=== PATIENT | female | born 1990 | race Caucasian/White ===

== ENCOUNTER 2023-04-12 00:48 | Day surgery (SDC) | payer OTHER, SELFPAY ==
[2023-04-10 11:10] VITALS: BMI 23.8
--- NOTE | 2023-04-10 11:15 | PC.NURSE ---
Report to the Outpatient Waiting Room, entrance under the green pavilion located off [facility], at time 0600 on date 04/12/23. Planned Procedure Time: 0730. Time changes happen often and if your time is changed the preop area will call you the afternoon before. - You and your visitor will be asked to self-screen and do not enter if you have any COVID symptoms. - A mask is optional within the hospital at this time. Patients may have clear liquids (water, carbonated beverages, clear teas, apple juice) until 3 hours prior to surgery with a maximum of 20 ounces. - No food from midnight until time of surgery Take the following medications with a SIP of water the morning of surgery: N/A DO NOT STOP ANY OF YOUR OTHER PRESCRIPTION MEDICATIONS PRIOR TO SURGERY ?EXCEPT THE FOLLOWING Medications to discontinue per physician: N/A Date to take last dose: N/A Please no make-up, nail maltese, hairspray, perfume, deodorant, or body powder the day of surgery. No jewelry (including any body piercings) or valuables the day of surgery, leave them at home. Please take a shower or bath the night before, or the morning of, surgery with an antibacterial soap. Wear comfortable, loose fitting clothing. - Jewelry must be removed prior to entering the operating room. Rings and piercings that are not removed may be cut off. - The hospital will not accept responsibility for valuables. - Please leave all valuables, including medications, at home the day of surgery. If you are going home after surgery, a licensed catering driver must drive you home. - NO public transportation without another adult if you receive anesthesia. - We recommend that an adult stay with you for 24 hours following discharge. - We also recommend that you do not drive, make important decision, drink alcoholic beverages, or take any drugs that were not prescribed by your health care provider for at least 24 hours after your discharge time. Follow any additional instructions given to you from your surgeon. If you or anyone in your household have experienced Covid symptoms in the past week, please notify your surgeon or the nurse liaison at the phone number below for possible testing. Telephone instructions given to CLAUDIO GALAN and asked if any additional questions and then verbalized understanding. Patient advised to call surgeon office or pre surgery nurse liaison [phone] if any additional questions.
[2023-04-12 06:11] VITALS: BP 107/68; PULSE 66; RESP 16; TEMP 36.9; O2SAT 98; BMI 24.0
--- NOTE | 2023-04-12 06:33 | WPDANESEPPF ---
Anes - Initial Pre Proc Eval Procedure: Operation Date: 04/12/23 07:30 Proposed Procedures p Loop Electrical Excision Procedure - Nahun Almaguer MD Date/Time: 04/12/23 06:33 Surgeon: Nahun Almaguer MD Pre Op Diagnosis: LSIL Patient Data Age: 33 Gender: F Height: 1.7 m Weight: 68.95 kg Allergies Allergy/AdvReac Type Severity Reaction Status Date / Time No Known Allergies Allergy Verified 04/10/23 11:10 Home Medications Medication Instructions Recorded Confirmed Type No Home Medications 03/22/23 04/10/23 History Patient hx anesthesia problems: none Family hx anesthesia problems: none Results Review: All pre-operative results and documents have been reviewed as part of the pre-operative evaluation. FOR[facility]LY [facility] Past Medical History Medical History Anxiety Bicornate uterus History of abnormal cervical Pap smear Surgical History Surgical History Previous section x2 Family History Family History Mother Heart disease Sibling Anxiety and depression Hypertension Grandparent Breast cancer Dx in 60s Anxiety and depression Cerebrovascular accident Heart disease Social History Social History Smoking status: Never smoker Alcohol intake: current Alcohol use details: RARE Substance use: current Substance use type: marijuana Other substance usage details: THC Lack of Transportation: No Lack of Food: Never True Current Housing: I Have Housing Concerned About Future Housing: No Difficulty Paying Gas/Electric Bills: No Difficulty Paying for Meds: No Currently Unemployed: No Education: Trade/Vocational Certificate Difficulty w/ Childcare or Family Care: No Living arrangements: with family Occupation/Education: occupation Gender identity (if verbalized by the patient): Female Sexual Orientation (if Verbalized by the Patient): Straight or Heterosexual Spiritual care concerns: No Agree to blood products: Yes Anes - Eval Final PreProcedure Day of Procedure 04/12/23 06:33 Patient weight: normal Heart: regular rate and rhythm Lungs: clear to auscultation Airway: Mallampati scale class II Neurological: alert and oriented Last oral intake: >/= 8 hours ASA classification: II Emergent: no Anesthetic plan: proceed Anesthesia type and monitoring: general GIVS and standard monitoring Results Review: All pre-operative results and documents have been reviewed as part of the pre-operative evaluation. Informed Consent: The patient's anesthetic plan and its attendant risks and benefits were discussed with the patient/family/POA. Questions were solicited and answers provided to the satisfaction of the patient/family/POA.
--- NOTE | 2023-04-12 06:44 | PM.IMHP ---
H&P: HPI History of Present Illness Date/Time: 04/12/23 06:44 Chief Complaint: Dysplasia Narrative: Patient with an lgSIL pap HPV, subsequent biopsy CIN2. She was recommended for LEEP. Review of Systems Review of Systems: All systems reviewed & are unremarkable except as noted in HPI and below Cardiovascular: Cardiovascular: Reports no additional cardiovascular complaints, Denies chest pain and Denies dyspnea Respiratory: Respiratory: Reports no additional respiratory complaints and Denies dyspnea Gastrointestinal: Gastrointestinal: Reports abdominal pain, Denies change in bowel habits, Denies diarrhea, Denies nausea and Denies vomiting Genitourinary: Genitourinary: Reports pelvic pain Musculoskeletal: Musculoskeletal: Reports back pain Integumentary/Breasts: Skin/Breast: Reports system reviewed and no additional complaints, except as docu Neurologic: Reports system reviewed and no additional complaints, except as documented PMF Past Medical History Medical History Anxiety Bicornate uterus History of abnormal cervical Pap smear Surgical History Surgical History Previous section x2 Family History Family History Mother Heart disease Sibling Anxiety and depression Hypertension Grandparent Breast cancer Dx in 60s Anxiety and depression Cerebrovascular accident Heart disease Social History Social History Smoking status: Never smoker Alcohol intake: current Alcohol use details: RARE Substance use: current Substance use type: marijuana Other substance usage details: THC Lack of Transportation: No Lack of Food: Never True Current Housing: I Have Housing Concerned About Future Housing: No Difficulty Paying Gas/Electric Bills: No Difficulty Paying for Meds: No Currently Unemployed: No Education: Trade/Vocational Certificate Difficulty w/ Childcare or Family Care: No Living arrangements: with family Occupation/Education: occupation Gender identity (if verbalized by the patient): Female Sexual Orientation (if Verbalized by the Patient): Straight or Heterosexual Spiritual care concerns: No Agree to blood products: Yes Meds Home Medications and Allergies Home Medications Medication Instructions Recorded Confirmed Type No Home Medications 03/22/23 04/10/23 History Allergies Allergy/AdvReac Type Severity Reaction Status Date / Time No Known Allergies Allergy Verified 04/10/23 11:10 Exam Const: Orientation/consciousness: oriented to person and oriented to place HENMT: Head: normal to inspection Eyes: General: appearance normal, both eyes and all related structures Resp: Effort & Inspection: normal respiratory effort Auscultation: clear to auscultation bilaterally Cardio: Rate: regular rate Rhythm: regular rhythm GI: Inspection: normal to inspection GI Palp: No Rebound tenderness present Neuro: General: oriented to person and oriented to place Cognition (Neuro): normal cognition Extrem: General: normal to inspection Psych: Appearance: grossly normal and well kempt Assessment and Plan Assessment and plan (1) DMITRY II (cervical intraepithelial neoplasia II): Code(s): N87.1 - Moderate cervical dysplasia Status: Acute Assessment and Plan: Will proceed with LEEPl.
[2023-04-12] MEDS: LACTATED RINGERS 1,000 ML 30 ML IV CONT (07:00)
[2023-04-12] MEDS: ACETAMINOPHEN 500 MG TABLET 1000 MG PO (07:05)
--- NOTE | 2023-04-12 07:15 | WPDHPUPDATE1 ---
History and Physical Update Update Date/Time: 04/12/23 07:15 History and Physical has been reviewed, including an updated exam of the patient. There are NO changes in the patient's condition. Risks, benefits, and alternatives have been discussed and questions answered. Patient agrees to proceed with procedure.
[2023-04-12] MEDS: ceFAZolin 2 GM/D5W 50 ML 2 GM/50 ML BAG IVPB (07:22)
[2023-04-12] MEDS: LIDO 1%/EPINEPHRINE 1:100,000 50 ML VIAL INFILTRATE (07:33)
[2023-04-12 07:46] VITALS: BP 94/52; PULSE 86; RESP 12; O2SAT 99
--- NOTE | 2023-04-12 07:48 | W.PM.PROC2 ---
Procedure Note - Detailed Date of Procedure 04/12/23 Pre-op Diagnosis DMITRY 2 Post-op Diagnosis Same Procedure Performed Loop electrosurgical excision procedure Surgeon Nahun Almaguer MD Anesthesia MAC and Local Indications DMITRY 2 on cervical biopsy Findings Hypopigmentation noted at 11 and 7:00 a.m. Description of Procedure After informed consent was obtained patient was taken to operating room and adequate IV sedation was administered she was placed in high lithotomy position and prepped and draped in sterile fashion attention was turned to the vagina speculum was inserted single 2 [place] placed on the anterior lip of the cervix 10 cc 1% lidocaine with epinephrine was injected at the cervix at the biopsy site. Prior to this Lugol solution was placed and hypopigmented areas noted more at 11 and 7:00 position. The loop was passed and closing the ectocervix and closing the hypopigmented area there was an inferior area that was not closed in the past and a 2nd pass was made at the inferior ectocervix to include this hypopigmented area. A smaller loop was used for endocervical pass. Hemostasis obtained with cautery. Patient tolerated procedure well sponge count correct. She was taken to recovery in stable condition. Estimated Blood Loss 5 Drains No Packing No Pathology Yes (Ectocervix with a 2nd inferior ectocervix segment 2. Endocervical pass) Complications No immediate complications Condition Stable Disposition Same day [facility] Billing Surgery - Charge Forward: Surgery Billing
[2023-04-12 08:15] VITALS: BP 98/56; PULSE 56; RESP 14
== END 2023-04-12 08:30 | disposition home or self-care (01) ==
PROVIDERS: Visit Provider Obstetrics & Gynecology
PROC: 0UBC7ZZ Excision of Cervix, Via Natural or Artificial Opening (ICD-10-PCS; CPT 57522; principal; 2023-04-12 07:30)
DX: N87.1 Moderate cervical dysplasia (principal); N72 Inflammatory disease of cervix uteri; N88.8 Other specified noninflammatory disorders of cervix uteri; F12.90 Cannabis use, unspecified, uncomplicated
CPT/HCPCS: 57522; 88307; A9270; J0690; J1100; J2250; J2405; J2704; J3010; J7120